=== PATIENT | male | born 1990 | race Native Hawaiian/Other Pacific Islander ===

== ENCOUNTER 2022-01-18 17:10 | Emergency (ER) | payer SELFPAY ==
[~2022-01-18] VITALS: Ht 160 cm; Wt 122.0 kg
[2022-01-18] MEDS ORDERED: NS IV 1000 ML 1,000 ML IV SCH (17:30)
[2022-01-18 17:37] LABS: BASOPHILS # (AUTO) 0.1 10^3/uL (0.0-0.1); BASOPHILS % (AUTO) 1 % (0-10); EOSINOPHILS # (AUTO) 1.7 10^3/uL (0.0-0.3); EOSINOPHILS % (AUTO) 17 % (0-10); HEMATOCRIT 39 % (40-54); HEMOGLOBIN 13.6 g/dL (13.3-17.7); LYMPHOCYTES # (AUTO) 1.8 10^3/uL (1.0-4.0); LYMPHOCYTES % (AUTO) 18 % (12-44); MEAN CORPUSCULAR HEMOGLOBIN 28 pg (25-34); MEAN CORPUSCULAR HGB CONC 35 g/dL (32-36); MEAN CORPUSCULAR VOLUME 81 fL (80-99); MEAN PLATELET VOLUME 8.7 fL (9.0-12.2); MONOCYTES # (AUTO) 0.5 10^3/uL (0.0-1.0); MONOCYTES % (AUTO) 5 % (0-12); NEUTROPHILS # (AUTO) 5.9 10^3/uL (1.8-7.8); NEUTROPHILS % (AUTO) 59 % (42-75); PLATELET COUNT 382 10^3/uL (130-400); WHITE BLOOD COUNT 9.9 10^3/uL (4.3-11.0)
[2022-01-18 17:45] LABS: ALBUMIN 3.8 GM/DL (3.2-4.5)
[2022-01-18 17:48] LABS: TOTAL PROTEIN 7.9 GM/DL (6.4-8.2)
[2022-01-18 17:50] LABS: BILIRUBIN,TOTAL 0.8 MG/DL (0.1-1.0)
[2022-01-18 17:52] LABS: CREATININE SERUM 0.84 MG/DL (0.60-1.30)
[2022-01-18 17:57] LABS: EOSINOPHILS % (MANUAL) 20 %; LYMPHOCYTES % (MANUAL) 10 %; MONOCYTES % (MANUAL) 5 %; NEUTROPHILS % (MANUAL) 65 %; POLYCHROMASIA MODERATE
--- NOTE | 2022-01-18 17:57 | ED Neurological Problem ---
General Chief Complaint: Neurological Problems Stated Complaint: SEIZURE Nursing Triage Note: ARRIVED VIA EMS FROM LOCAL ER AFTER HAVING A SEIZURE. STATES HE TAKES MEDS EVERYDAY TO PREVENT SEIZURES BUT DOES NOT KNOW THE NAME. Source: patient Exam Limitations: no limitations History of Present Illness Date Seen by Provider: Jan 18, 2022 Time Seen by Provider: 17:10 Initial Comments Patient is a 31-year-old male who presents to the emergency department via EMS after having a possible seizure. Patient recently moved to the area from [place] and was at a [employer] service being held in a [employer] conference room when the seizure occurred. There is no one who accompanies the patient who saw the seizure when it happened. Patient speaks Venezuelan and staff interpreter was used to help with communication. Patient states he does not remember the event. He does have a history of seizures for which he takes Keppra. He states his last seizure was approximately a month ago. It is uncertain exactly how long the seizure lasted. EMS states patient was postictal but easily arousable upon their arrival. There does not appear to be any bowel or bladder incontinence that occurred when the seizure happened. Patient does have a history of surgery but is unable to provide further details on what surgery was done or for what reason. Patient denies any recent head trauma. Allergies and Home Medications Allergies Coded Allergies: No Known Drug Allergies (Unverified , 01/18/22) Patient Home Medication List Home Medication List Reviewed: Yes Review of Systems Review of Systems Constitutional: no symptoms reported Eyes: No Symptoms Reported Ears, Nose, Mouth, Throat: no symptoms reported Respiratory: no symptoms reported Cardiovascular: no symptoms reported Gastrointestinal: no symptoms reported Genitourinary: no symptoms reported Musculoskeletal: no symptoms reported Skin: no symptoms reported Psychiatric/Neurological: See HPI, Tonic Clonic Seizures Endocrine: No Symptoms Reported Hematologic/Lymphatic: No Symptoms Reported Past Dkeneti-Gqjjvh-Icsrod Hx Patient Social History Tobacco Use?: Yes Smoking Status: Current Everyday Smoker Substance use?: No Alcohol Use?: No Immunizations Up To Date Second COVID19 Vaccination Rk: UNKNOWN 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 oz. kg; 47.00 BMI Method: General Appearance: WD/WN, no apparent distress HEENT: PERRL/EOMI, normal ENT inspection, TMs normal, pharynx normal Neck: non-tender, full range of motion, supple, normal inspection Respiratory: chest non-tender, lungs clear, normal breath sounds, no respiratory distress, no accessory muscle use Cardiovascular: regular rate, rhythm Gastrointestinal: normal bowel sounds, non tender, soft, no organomegaly, no pulsatile mass Extremities: non-tender, normal inspection, no pedal edema, no calf tenderness Neurologic/Psychiatric: no motor/sensory deficits, alert, normal mood/affect, oriented x 3 Skin: normal color, warm/dry Progress/Results/Core Measures Results/Orders Lab Results Laboratory Tests Test 01/18/22 17:30 01/18/22 17:41 Range/Units White Blood Count 9.9 4.3-11.0 10^3/uL Red Blood Count 4.79 4.30-5.52 10^6/uL Hemoglobin 13.6 13.3-17.7 g/dL Hematocrit 39 L 40-54 % Mean Corpuscular Volume 81 80-99 fL Mean Corpuscular Hemoglobin 28 25-34 pg Mean Corpuscular Hemoglobin Concent 35 32-36 g/dL Red Cell Distribution Width 13.2 10.0-14.5 % Platelet Count 382 130-400 10^3/uL Mean Platelet Volume 8.7 L 9.0-12.2 fL Immature Granulocyte % (Auto) 0 % Neutrophils (%) (Auto) 59 42-75 % Lymphocytes (%) (Auto) 18 12-44 % Monocytes (%) (Auto) 5 0-12 % Eosinophils (%) (Auto) 17 H 0-10 % Basophils (%) (Auto) 1 0-10 % Neutrophils # (Auto) 5.9 1.8-7.8 10^3/uL Lymphocytes # (Auto) 1.8 1.0-4.0 10^3/uL Monocytes # (Auto) 0.5 0.0-1.0 10^3/uL Eosinophils # (Auto) 1.7 H 0.0-0.3 10^3/uL Basophils # (Auto) 0.1 0.0-0.1 10^3/uL Immature Granulocyte # (Auto) 0.0 0.0-0.1 10^3/uL Neutrophils % (Manual) 65 % Lymphocytes % (Manual) 10 % Monocytes % (Manual) 5 % Eosinophils % (Manual) 20 % Polychromasia MODERATE Sodium Level 134 L 135-145 MMOL/L Potassium Level 4.0 3.6-5.0 MMOL/L Chloride Level 100 98-107 MMOL/L Carbon Dioxide Level 19 L 21-32 MMOL/L Anion Gap 15 H 5-14 MMOL/L Blood Urea Nitrogen 10 7-18 MG/DL Creatinine 0.84 0.60-1.30 MG/DL Estimat Glomerular Filtration Rate 119 BUN/Creatinine Ratio 12 Glucose Level 132 H 70-105 MG/DL Calcium Level 9.0 8.5-10.1 MG/DL Corrected Calcium 9.2 8.5-10.1 MG/DL Total Bilirubin 0.8 0.1-1.0 MG/DL Aspartate Amino Transf (AST/SGOT) 20 5-34 U/L Alanine Aminotransferase (ALT/SGPT) 12 0-55 U/L Alkaline Phosphatase 113 40-136 U/L Total Creatine Kinase 86 30-200 U/L Total Protein 7.9 6.4-8.2 GM/DL Albumin 3.8 3.2-4.5 GM/DL Urine Opiates Screen NEGATIVE NEGATIVE Urine Oxycodone Screen NEGATIVE NEGATIVE Urine Methadone Screen NEGATIVE NEGATIVE Urine Propoxyphene Screen NEGATIVE NEGATIVE Urine Barbiturates Screen NEGATIVE NEGATIVE Ur Tricyclic Antidepressants Screen NEGATIVE NEGATIVE Urine Phencyclidine Screen NEGATIVE NEGATIVE Urine Amphetamines Screen NEGATIVE NEGATIVE Urine Methamphetamines Screen NEGATIVE NEGATIVE Urine Benzodiazepines Screen NEGATIVE NEGATIVE Urine Cocaine Screen NEGATIVE NEGATIVE Urine Cannabinoids Screen NEGATIVE NEGATIVE My Orders Orders - DANIELLE BAKER [employer] Cbc With Automated Diff (01/18/22 17:30) Comprehensive Metabolic Panel (01/18/22 17:30) Iv/Invasive Line Insertion .IV INSERT (01/18/22 17:30) Drug Screen Stat (Urine) (01/18/22 17:30) Creatine Kinase (01/18/22 17:30) Ns Iv 1000 Ml (Sodium Chloride 0.9%) (01/18/22 17:30) Manual Differential (01/18/22 17:30) Vital Signs/I&O 01/18/22 01/18/22 17:10 19:03 Temp 37.3 Pulse 124 105 Resp 16 B/P (MAP) 120/72 (88) 116/76 Pulse Ox 99 100 O2 Delivery Room Air Room Air Blood Pressure Mean: 88 Progress Progress Note : Progress Note Patient is nontoxic and well-hydrated on exam. No adventitious lung sounds or increased work of breathing noted. No focal neurologic deficits appreciated. Patient is able to answer questions appropriately. He is awake and alert. Laboratory evaluation unremarkable. Patient returned to baseline and had no further evidence of any ictal activity. Patient is already on antiepileptic medications. Discussed importance of establishing a local PCP. No indications for further diagnostics at this time. Will discharge home. Return precautions for urgent symptomology discussed. Chinese speaking acquaintances are also present with the patient. They are the ones who helped the patient moved to this area. Patient verbalized understanding. Departure Impression Primary Impression: Seizure Disposition: 01 HOME, SELF-CARE Condition: Stable Departure-Patient Inst. Decision time for Depature: 18:50 Referrals: [facility] [place] [facility],LOCAL PHYSICIAN (PCP) Primary Care Physician Patient Instructions: Seizures, Adult (DC) DANIELLE BAKER APRN Jan 18, 2022 17:57
[2022-01-18 17:59] LABS: AMPHETAMINE SCREEN, URINE NEGATIVE (NEGATIVE); BARBITURATE SCREEN URINE NEGATIVE (NEGATIVE); BENZODIAZEPINES SCREEN URINE NEGATIVE (NEGATIVE); CANNABINOID SCREEN, URINE NEGATIVE (NEGATIVE); COCAINE SCREEN URINE NEGATIVE (NEGATIVE); METHADONE STAT NEGATIVE (NEGATIVE); OPIATE SCREEN URINE NEGATIVE (NEGATIVE); OXYCODONE STAT NEGATIVE (NEGATIVE); PROPOXYPHENE STAT NEGATIVE (NEGATIVE); TRICYCLIC ANTIDEPRESSANTS SCRE NEGATIVE (NEGATIVE)
[2022-01-18 19:03] VITALS: BP 116/76
== END 2022-01-18 19:06 | disposition home or self-care (01) ==
LOC: ER 17:17
DX: R56.9 Unspecified convulsions (principal); F17.200 Nicotine dependence, unspecified, uncomplicated
CPT/HCPCS: 36415; 80053; 80306; 82550; 85007; 85027; 99284